=== PATIENT | female | born 1960 | race Hispanic/Latino ===

== ENCOUNTER 2016-11-28 06:24 | Day surgery (SDC) | payer BC ==
[2016-11-23 12:33] VITALS: BMI 52.2
--- NOTE | 2016-11-26 05:00 | HP ---
DATE: 11/25/2016 REASON FOR ADMISSION: Left heart catheterization, angioplasty, abnormal stress test. BRIEF CLINICAL HISTORY: This is a 56-year-old morbidly obese female with past medical history of hypothyroidism, hypertension, complaining of chest pain and dyspnea on exertion. The patient underwent a stress test with Dr. Benavides that shows suspicious for ischemia, possible reversible anterolaterally suspicious ischemia when compared from the previous stress test on 03/21/2014, these changes are new. The patient scheduled for elective cardiac cath possible angioplasty. PAST MEDICAL HISTORY: Past history significant for obesity, hypertension, hypothyroidism. SOCIAL HISTORY: Denies any history of alcohol abuse. CURRENT MEDICATIONS: The patient is taking potassium chloride 10 mEq, lisinopril 10 mg, levothyroxine 50, aspirin 81, metoprolol succinate 25 mg once a day, Lasix 40 mg, vitamin D 50,000 unit every Monday. ALLERGIES: NO KNOWN DRUG ALLERGIES. LABORATORY DATA: Previous cardiac workup as follows. The patient had a stress test on dated 08/17/2016. No pain. . No thrombus. Ejection fraction 65% to 70%, imxb-bl-[id number] mitral regurgitation, jvpf-oc-tjsnhpre tricuspid regurgitation, hyyo-mm-hzvbucau aortic regurgitation. Stress test dated 08/23/2016 that showed probably abnormal myocardial perfusion study with ejection fraction 79% compared from the previously dated 03/21/2014 and these changes are new. IMPRESSION: A 56-year-old morbidly obese female with past medical history significant for mitral regurgitation status post mitral valve repair, has abnormal stress test, dyspnea on exertion, chest pain on exertion, underwent a stress test, also the patient admitted for elective cath, possible angioplasty. The patient has history of mitral valve repair, ekjw-vn-bujhqgvl aortic regurgitation, pvlt-wr-efcxncej tricuspid regurgitation with status post mitral valve repair, preserved left ventricle function, by echo dated 08/07/2016. Ejection fraction 65% to 70%. RECOMMENDATIONS: We will load with aspirin, Plavix. Follow the blood workup, if okay. We will proceed for cardiac catheterization. May Brown MD
[2016-11-28 07:14] LABS: BASO # 0.02 K/mm3 (0.0-2.0); BASO % 0.2 % (0.0-3.0); EOS # 0.1 (0.0-0.7); EOS % 1.3 % (1.5-5.0); GRAN # 6.56 (1.4-6.5); GRAN % 63.3 % (50.0-68.0); HEMOGLOBIN 13.1 gm/dL (12.0-16.0); LYMPH # 2.9 (1.2-3.4); MEAN CELL VOLUME 88.3 fL (80.0-105.0); MEAN CORPUSCULAR HEMOGLOBIN 30.5 pg (25.0-35.0); MEAN CORPUSCULAR HGB CONC 34.6 g/dl (31.0-37.0); MEAN PLATELET VOLUME 9.8 fl (7.0-11.0); MONO # 0.8 (0.1-0.6); MONO % 7.2 % (1.0-6.0); PLATELET COUNT 251 10^3/uL (120.0-450.0); RBC 4.29 10^6/uL (3.5-6.1); RED CELL DISTRIBUTION WIDTH 12.7 % (11.5-14.5); WHITE BLOOD COUNT 10.4 10^3/ul (4.5-11.0)
[2016-11-28 07:23] LABS: PARTIAL THROMBOPLASTIN TIME 26.4 Seconds (23.7-30.8); PROTHROMBIN TIME 10.8 Seconds (9.9-11.8)
[2016-11-28 07:24] LABS: BLOOD UREA NITROGEN 13 mg/dL (7-21); CALCIUM 9.3 mg/dL (8.4-10.5); GFR AFRICAN-AMERICAN > 60; GFR NON-AFRICAN AMERICAN > 60; HDL CHOLESTEROL 44 mg/dL (29-60)
[2016-11-28 07:34] LABS: LDL CHOLESTEROL 133 mg/dL (0-129)
[2016-11-28] MEDS ORDERED: Lidocaine 2% Inj (20ml) ONE (08:16)
[2016-11-28] MEDS ORDERED: Nitroglycerin 50mg in D5W 50 MG/250 ML BOTTLE IV ONE (08:17)
[2016-11-28] MEDS ORDERED: Midazolam 2 MG/2 ML VIAL ONE (08:40)
[2016-11-28] MEDS ORDERED: Bacitracin 500 Units/gm Oint Foilpak UD TOP ONE (09:30)
[2016-11-28] MEDS ORDERED: Sodium Chloride 0.9% 1,000 ML IV SCH (09:30)
[2016-11-28 09:50] VITALS: TEMP 98
[2016-11-28] MEDS ORDERED: Bacitracin 500 Units/gm Oint Foilpak UD ONE (11:53)
[2016-11-28 11:57] VITALS: BP 113/51; PULSE 71; RESP 18; O2SAT 99
[2016-11-28] MEDS ORDERED: Potassium Chloride 20 mEq ER Tab PO ONE ×2 (12:00→12:06)
--- NOTE | 2016-11-28 14:00 | CARD ---
APPROVED REPORT Procedure(s) performed: Left Heart Catheterization HISTORY The patient is a 56 year-old female with a history of : most recent EF: 79%. (EF Method: RADIONUCLIDE), previous diagnostic cath, hypertension , previous valve surgery (The previous valve surgery date was ), S/p oHS for MV repair, now C/o Chest pain, [place] and had abnoraml Stress terst , and kelsey-lateral Ischemia.. INDICATION The indication(s) include : positive stress test. CASE TECHNIQUE The patient was brought electively to the Cardiac Catheterization Laboratory in a fasting state and was prepped and draped in a sterile manner. The left wrist was infiltrated with 2% Lidocaine subcutaneous anesthesia. A 6 Fr Glidesheath (Radial) sheath was inserted into the left radial artery without difficulty. Coronary angiography was performed using coronary diagnostic catheters. The left coronary system was accessed and visualized with a Diagnostic ,5 Fr JL 3.5 catheter. The right coronary system was accessed and visualized with a Diagnostic ,5 Fr JR 3.5 catheter. The left ventricle was accessed and visualized with a 5 Fr Pigtail 145 (Angled) catheter. Left ventricular/Aortic Valve gradient assessed on pullback. Left ventriculogram was performed in CHAMBERLAIN projection. Closure device was deployed with a Fr TR Band (Large) without any complications. The patient tolerated the procedure well and there were no complications associated with the procedure. Vessel Analysis The patient's coronary anatomy is right dominant. The left main coronary artery is a large size vessel without significant stenosis. The left main bifurcates to the left anterior descending and circumflex. The left anterior descending artery is a medium size vessel with diffuse calcification noted throughout this vessel and without significant stenosis. There is a 30-40% stenosis in the very distal segment. diffuisely diseased but no focal flow limiting stenosis The first diagonal branch is a small size vessel with diffuse calcification noted throughout this vessel and without significant stenosis. There is a 70-80% stenosis in the very distal segment. diffusely diseased like thread, not suitable for PCI. The circumflex artery is a medium size vessel with diffuse calcification noted throughout this vessel and without significant stenosis. The first obtuse marginal branch is a small size vessel with diffuse calcification noted throughout this vessel and without significant stenosis. The second obtuse marginal branch is a medium size vessel with diffuse calcification noted throughout this vessel and without significant stenosis. The right coronary artery is a large size vessel with diffuse calcification noted throughout this vessel and without significant stenosis. The right posterior descending artery is a large size vessel with diffuse calcification noted throughout this vessel and without significant stenosis. There is a 30-40% stenosis in the very distal segment. diffusely diseased, but no focal flow limiting stenosis Left Ventricle The left ventricle is normal in size with normal contractility. There was no cardiomyopathy. The left ventricular ejection fraction is estimated to be 65%. The left ventricular end diastolic pressure is 18 mmHg. There was no gradient across the aortic valve upon pullback. 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 Mild to Moderate Diz.in Distal LAD/RCA Preserved LV FX. EF-65%, EDP-18 mmof Hg. Recommendations Aggressive Medical TherapyCardiac Risk Reduction Program Weight Loss Reduction Program CC; Drs. Morillo/ Kennedy.
== END 2016-11-28 13:05 | disposition home or self-care (01) ==
LOC: CATH 06:24
PROVIDERS: ATTEND Internal Medicine Cardiovascular Disease
DX: I25.10 Atherosclerotic heart disease of native coronary artery without angina pectoris (principal); I10 Essential (primary) hypertension; I08.2 Rheumatic disorders of both aortic and tricuspid valves; E03.9 Hypothyroidism, unspecified; E66.01 Morbid (severe) obesity due to excess calories; Z68.43 Body mass index [BMI] 50.0-59.9, adult; Z98.890 Other specified postprocedural states
CPT/HCPCS: 36415; 80048; 80061; 85025; 85610; 85730; 86850; 86900; 93458; 99152; C1769; C1887; J1644 ×2; J1940; J2250; J3010; J7040; Q9967